=== PATIENT | male | born 1950 | race Caucasian/White ===

== ENCOUNTER 2017-06-21 14:22 | Emergency (ER) | payer MEDICARE ==
[~2017-06-21] VITALS: Ht 175.3 cm; Wt 95.2 kg
[~2017-06-21 14:22] MED LIST: AMLODIPINE BESY10 MG PO; ASPIR 8181 MG PO; CARVEDILOL6.25 MG PO; LISINOPRIL20 MG PO; LOVASTATIN40 MG PO
[2017-06-21] MEDS ORDERED: NITROSTAT0.4 MG SL (16:24)
[2017-06-21] MEDS ORDERED: PRADAXA75 MG PO (16:24)
--- NOTE | 2017-06-21 23:50 | EKG ---
[facility] [address] [facility] [place], [place] [address] Signed Atrial flutter with variable AV block Left axis deviation T wave abnormality, consider inferior ischemia Abnormal ECG No previous ECGs available Confirmed by CHANTAL CARLIN MD ([id number]) on 06/21/2017 11:50:34 PM Electronically Signed By: CHANTAL CARLIN MD 06/21/17 2350 PATIENT NAME: MIKE SAGASTUME SLY Electrocardiogram DATE OF : 46 PHYSICIAN: CHANTAL CARLIN MD REPORT #: [id number] REPORT IS CONFIDENTIAL AND NOT TO BE RELEASED WITHOUT AUTHORIZATION
[2017-08-24] MEDS ORDERED: METOPROLOL TART50 MG PO (15:11)
[2017-08-24] MEDS ORDERED: WARFARIN SODIUM5 MG PO (15:19)
== END 2017-06-21 16:40 | disposition home or self-care (01) ==
LOC: ED 14:22
DX: R07.89 Other chest pain (principal); I48.92 Unspecified atrial flutter; R06.00 Dyspnea, unspecified; Z87.891 Personal history of nicotine dependence; Z79.899 Other long term (current) drug therapy; Z79.82 Long term (current) use of aspirin
CPT/HCPCS: 71045; 80053; 83880; 84443; 84484; 85025; 85379; 93005; 93010; 99284

== ENCOUNTER 2019-04-07 15:42 | Emergency (ER) | payer MEDICARE ==
[~2019-04-07] VITALS: Ht 177.8 cm; Wt 106.1 kg
--- OUTSIDE RECORDS SUMMARY | ~2019-04-07 | XMS | Encounter Summary ---
Demographics + + + | Address | [address] | | | [place] [address] | + + + | Home Phone | | + + + | Preferred Language | Unknown | + + + | Marital Status | | + + + | Holiness Affiliation | Unknown | + + + | Race | Unknown | + + + | Ethnic Group | Unknown | + + + Author + + + | Author | [facility] | | | and Aristides | + + + | Organization | [facility] | | | and [place] | + + + | Address | Unknown | + + + | Phone | Unavailable | + + + Support + + +---------+ + | Name | Relationship | Address | Phone | + + +---------+ + | Dante Garzon | ECON | Unknown | | | "Cousin" | | | | + + +---------+ + Care Team Providers + +------+ + | Care Appellate Law Clerk Name | Role | Phone | + +------+ + | Moses Lopez MD | PCP | | + +------+ + Reason for Visit + + + | Reason | Comments | + + + | Follow-up | b/p issues and Hx of atrial flutter/fib | + + + Encounter Details +--------+---------+ + + + | Date | Type | Department | Care Team | Description | +--------+---------+ + + + | 03/21/ | Office | [facility] | Magdalena Kohler | Atrial | | 2019 | Visit | CARDIOLOGY [facility] | MD [address] | fibrillation/flutter | | | | [address] | [place] | (HCC) (Primary Dx); | | | | [place], [place] | [address] | SVT | | | | [phone] | | (supraventricular | | | | [phone] | | tachycardia) ([facility]); | | | | | | Paroxysmal atrial | | | | | | flutter ([facility]); SOB | | | | | | (shortness of | | | | | | breath) on exertion; | | | | | | Essential | | | | | | hypertension; | | | | | | Lightheadedness | +--------+---------+ + + + Social History + +-------+ +--------+------+ | Tobacco Use | Types | Packs/Day | Years | Date | | | | | Used | | + +-------+ +--------+------+ | Never Smoker | | | | | + +-------+ +--------+------+ + +---+---+---+ | Smokeless Tobacco: | | | | | Never Used | | | | + +---+---+---+ + + +---------+ + | Alcohol Use | Drinks/We | oz/Week | Comments | | | ek | | | + + +---------+ + | Not Currently | | | | + + +---------+ + + + + | Sex Assigned at | Date Recorded | | | | + + + | Not on file | | + + + + + + + | Job Start Date | Occupation | Industry | + + + + | Not on file | Not on file | Not on file | + + + + + + + + | Travel History | Travel Start | Travel End | + + + + + + | No recent travel history available. | + + documented as of this encounter Last Filed Vital Signs + + + + | Vital Sign | Reading | Time Taken | + + + + | Blood Pressure | 108/70 | 03/21/2019 1008 PDT | + + + + | Pulse | 132 | 03/21/20191007 PDT | + + + + | Temperature | - | - | + + + + | Respiratory Rate | 18 | 03/21/20191007 PDT | + + + + | Oxygen Saturation | 97% | 03/21/20191007 PDT | + + + + | Inhaled Oxygen | - | - | | Concentration | | | + + + + | Weight | 105.2 kg (232 lb) | 03/21/20191007 PDT | + + + + | Height | 177.8 cm (5' 10") | 03/21/2019 1008 PDT | + + + + | Body Mass Index | 33.29 | 03/21/2019 1008 PDT | + + + + documented in this encounter Progress Notes Magdalena Kohler MD - 03/21/2019 1015 PDTFormatting of this note might be different fro m the original. [facility] OUTPATIENT VISIT PATIENT NAME: Otto Mock : 1950: AGE: 68 y.o. (home) Date of visit: 03/21/2019 PRIMARY CARE: Moses Lopez MD CHIEF COMPLAINT Chief Complaint Patient presents with Follow-up b/p issues and Hx of atrial flutter/fib Plan ASSESSMENT & PLAN 1. Paroxysmal atrial flutter with rapid ventricular response, status post prior electrical cardioversion, currently with rapid ventricular response 2. Paroxysmal atrial fibrillation 3. Hypertension 4. Obstructive sleep apnea, not using CPAP regularly 5. Exertional shortness of breath 6. Episodes of near syncope Patient is highly symptomatic with recurrence of atrial flutter currently with rapid ventri cular response causing episodes of hypotension shortness of breath and lightheadedness and n ear syncope. Recommended electrical cardioversion, which we will arrange for today, with anesthesia. He has been anticoagulated. Will stop hydrochlorothiazide Change carvedilol to Toprol-XL 100 mg daily Continue lisinopril and amlodipine. If episodes of low blood pressure then we might discon tinue amlodipine. Continue Coumadin anticoagulation Orders Placed This Encounter Procedures ECG 12 lead Case Request - CV/EP LAB: CV EP CARDIOVERSION HISTORY OF PRESENT ILLNESS Otto Mock is 68 y.o. male with a history of hypertension, atrial fibrillation, atri al flutter status post cardioversion, obstructive sleep apnea, who is here today for follow- up on concerns about worsening episodes of lightheadedness and dizziness and episode of near syncope. He also had noticed exertional shortness of breath with minimal activity. He had been having on and off for palpitations with feeling his heart racing. He had blood pressu re measurements from home. He had one severe episode of near syncope at that time his blood pressure was low 78/48. He had one episode of right-sided left-sided sharp chest pain that lasted few seconds but denies any exertional chest pains. Denies orthopnea, paroxysmal noc turnal dyspnea. Did not have a real syncope. He had been taking his Coumadin regularly and no bleeding issues. ECG today showed probable atrial flutter with 2-1 conduction with a ve ntricular rate of 131 bpm. RELEVANT MEDICAL HISTORY Past Medical History: Diagnosis Date Atrial fibrillation (HCC) Hypertension Rheumatic fever CHILDHOOD Past Surgical History: Procedure Laterality Date CARDIOVERSION Social History Socioeconomic History Marital status: Spouse name: Not on file Number of children: Not on file Years of education: Not on file Highest education level: Not on file Social Needs Financial resource strain: Not on file Food insecurity - worry: Not on file Food insecurity - inability: Not on file Transportation needs - medical: Not on file Transportation needs - non-medical: Not on file Occupational History Not on file Tobacco Use Smoking status: Never Smoker Smokeless tobacco: Never Used Substance and Sexual Activity Alcohol use: Not Currently Drug use: Never Comment: Drug use: No Sexual activity: Not on file Other Topics Concern Not on file Social History Narrative Not on file History reviewed. No pertinent family history. REVIEW OF SYSTEMS All other systems are reviewed and negative, except as above in the HPI. Review of Systems Constitution: Positive for malaise/fatigue. Negative for diaphoresis. HENT: Negative for congestion, nosebleeds and sore throat. Eyes: Negative for blurred vision. Cardiovascular: Positive for near-syncope and palpitations. Negative for chest pain, claudi cation, irregular heartbeat, leg swelling, orthopnea, paroxysmal nocturnal dyspnea and synco pe. Respiratory: Positive for shortness of breath. Negative for cough, hemoptysis and snoring. Endocrine: Negative for cold intolerance and heat intolerance. Hematologic/Lymphatic: Negative for bleeding problem. Does not bruise/bleed easily. Skin: Negative for color change and rash. Musculoskeletal: Negative for arthritis, back pain, joint pain and neck pain. Gastrointestinal: Negative for abdominal pain, constipation, diarrhea, nausea and vomiting. Genitourinary: Negative for hematuria. Neurological: Positive for light-headedness. Negative for dizziness, focal weakness and hea daches. Psychiatric/Behavioral: Negative for depression. The patient is not nervous/anxious. Outpatient Medications Prior to Visit Medication Sig Dispense Refill amLODIPine (NORVASC) 10 MG tablet Take 1 tablet by mouth daily. 90 tablet 3 ascorbic acid (VITAMIN C) 1000 MG tablet Take 1,000 mg by mouth daily. carvedilol (COREG) 12.5 mg tablet Take 1 tablet by mouth 2 (two) times daily with meals . 180 tablet 3 hydroCHLOROthiazide 25 mg tablet Take 1 tablet by mouth daily. 90 tablet 3 lisinopril (PRINIVIL, ZESTRIL) 20 mg tablet Take 1 tablet by mouth 2 (two) times daily. 180 tablet 3 lovastatin (MEVACOR) 40 MG tablet Take 40 mg by mouth daily. Multiple Vitamins-Minerals (MULTIVITAMIN ADULTS PO) Take 1 tablet by mouth daily. nitroglycerin (NITROSTAT) 0.[address] 0.4 mg under the tongue every 5 (five) minutes as needed. warfarin (COUMADIN) 5 mg tablet Take 5 mg by mouth daily. No facility-administered medications prior to visit. PHYSICAL EXAM BP 108/70 | Pulse 132 | Resp 18 | Ht 1.778 m (5' 10") | Wt 105.2 kg (232 lb) | SpO2 97 % | BMI 33.29 kg/m Physical Exam Constitutional: He is oriented to person, place, and time. No distress. HENT: Head: Normocephalic and atraumatic. Eyes: Conjunctivae are normal. No scleral icterus. Neck: No JVD present. Cardiovascular: Regular rhythm. Tachycardia present. Exam reveals no gallop and no friction rub. No murmur heard. Pulmonary/Chest: No stridor. No respiratory distress. He has no wheezes. He exhibits no ten derness. Abdominal: Soft. Bowel sounds are normal. There is no tenderness. There is no rebound. Musculoskeletal: He exhibits no edema, tenderness or deformity. Neurological: He is alert and oriented to person, place, and time. No cranial nerve deficit . Skin: Skin is warm and dry. No rash noted. He is not diaphoretic. No pallor. Psychiatric: He has a normal mood and affect. PERTINENT DATA LABORATORY RESULTS: Lab Results Component Value Date WBC 11.13 (H) 07/28/2017 HGB 15.6 07/28/2017 Lab Results Component Value Date INR 2.2 08/27/2017 Lab Results Component Value Date NA 140 07/28/2017 K 4.5 07/28/2017 CL 110 (H) 07/28/2017 CO2 23 07/28/2017 BUN 12 07/28/2017 No results found for: CHOL, TRIG, HDL, LDL, LDLEX, TSH IMAGING RESULTS ECG March 21, 2019, personally reviewed, showed supraventricular tachycardia, possibly atr ial flutter with 2-1 conduction ventriculart rate of 131 bpm, left axis deviation. ECG September 16, 2017, reviewed, showed sinus bradycardia, left axis deviation, nonspecific T-w ave changes. Hotler 08/02/2017 INTERPRETATION 1. The basic rhythm is atrial flutter with rapid ventricular response with variable ventric ular response. 2. Average ventricular rate 105 beats per minute, fastest ventricular rate 133 beats per mi nute. 3. Ventricular rate above 100 beats per minute in about 60% of the time. 4. No significant pauses. 5. No ventricular tachycardia. 6. No other supraventricular tachycardia. 7. No symptoms reported. IMPRESSION Atrial flutter with variable response with uncontrolled ventricular rate, tachycardia burde n 60%. Echo 08/09/2017 Impression 1. Overall left ventricular systolic function is normal with, an EF between 60 - 65 %. 2. The left atrium is mildly enlarged. 3. Mild mitral regurgitation is present. 4. Mild tricuspid regurgitation present. Cath 07/28/2017 IMPRESSION 1. Normal epicardial coronary arteries. 2. Normal left ventricular systolic function with estimated ejection fraction of 65%. 3. Atrial flutter with rapid ventricular response, improved with intravenous verapamil and metoprolol. A 12-lead ECG done at [facility] dated June 21, 2017, reviewed showed atrial fl utter with variable AV block and rapid ventricular response and left axis deviation. Lexiscan nuclear stress test done at [facility] dated July 14, 2017, reporte d as: 1. No ECG changes to suggest Lexiscan induced ischemia 2. No evidence of ischemia or infarction on myocardial perfusion. The ejection fraction is 42%. Mild dyskinesia. The following portions of the patient's history were reviewed and updated as appropriate: Allergies, current medications, family history, past medical history, past social history, past surgical history and problem list. Thank you for allowing me to participate in the care of this patient. Please, do not hesitate to contact me with any further questions. Magdalena Kohler MD 03/21/2019 *Portions of this report have been prepared using [employer] voice recognition software. The re port was reviewed for accuracy, however, sound-alike word errors, additions and/or deletions may occur. Please use the clinical context for clarification. If there is any question abou t this report, please contact me. documented in this e ncounter Plan of Treatment +--------+---------+ + + + | Date | Type | Specialty | Care Team | Description | +--------+---------+ + + + | 07/06/ | Office | Cardiology | Magdalena Kohler | | | 2019 | Visit | | MD [address] | | | | | | [place] | | | | | | [id number] | | | | | | | | +--------+---------+ + + + documented as of this encounter Procedures + +--------+ + + + | Procedure Name | Priori | Date/Time | Associated Diagnosis | Comments | | | ty | | | | + +--------+ + + + | ECG 12 LEAD | Routin | 03/21/2019 | Atrial | Results for this | | | e | 10:15 PDT | fibrillation/flutter | procedure are in the | | | | | ([facility]) | results section. | + +--------+ + + + documented in this encounter Results ECG 12 lead (03/21/2019 10:15 PDT) + + + + + + | Component | Value | Ref Range | Performed | Pathologist | | | | | At | Signature | + + + + + + | VENTRICULAR | 131 | BPM | [facility] | | | RATE EKG | | | | | + + + + + + | ATRIAL RATE | 131 | BPM | [facility] | | + + + + + + | QRS | 98 | ms | [facility] | | | DURATION | | | | | + + + + + + | Q-T | 358 | ms | [facility] | | | INTERVAL | | | | | + + + + + + | Q-T | 528 | ms | [facility] | | | INTERVAL | | | | | | (CORRECTED) | | | | | + + + + + + | QRS AXIS | -65 | degrees | [facility] | | + + + + + + | T AXIS | -31 | degrees | [facility] | | + + + + + + | INTERPRETAT | Please refer to | | [facility] | | | ION TEXT | Providers office visit | | | | | | note for Providers | | | | | | Interpretation.Confirmed | | | | | | by [facility] [place] Read Only, | | | | | | [facility] [place] ([id number]), | | | | | | medical editor Eris Daniel | | | | | | ([id number]) on 03/21/2019 | | | | | | 10:19:02 AM | | | | + + + + + + + + | Specimen | + + | | + + + + + | Narrative | Performed At | + + + | | | + + + + +---------+ + + | Performing | Address | City/State/Zipcode | Phone Number | | Organization | | | | + +---------+ + + | [facility] | | | | + +---------+ + + documented in this encounter Visit Diagnoses + + | Diagnosis | + + | Atrial fibrillation/flutter (HCC) - Primary | + + | SVT (supraventricular tachycardia) ([facility]) Other specified cardiac dysrhythmias | + + | Paroxysmal atrial flutter (HCC) Atrial flutter | + + | SOB (shortness of breath) on exertion Shortness of breath | + + | Essential hypertension Unspecified essential hypertension | + + | Lightheadedness Dizziness and giddiness | + + documented in this encounter
--- OUTSIDE RECORDS SUMMARY | ~2019-04-07 | XMS | Encounter Summary ---
Demographics + + + | Address | [address] | | | [place] [address] | + + + | Home Phone | | + + + | Preferred Language | Unknown | + + + | Marital Status | | + + + | Lutheran Affiliation | Unknown | + + + | Race | Unknown | + + + | Ethnic Group | Unknown | + + + Author + + + | Author | [facility] | | | and Aristides | + + + | Organization | [facility] | | | and [...] Team Providers + +------+ + | Care Punch Box Tender Name | Role | Phone | + +------+ + | Moses Lopez MD | PCP | | + +------+ + Reason for Visit Auth/Cert +--------+--------+ + + + + | Status | Reason | Specialty | Diagnoses / | Referred By | Referred To | | | | | Procedures | Contact | Contact | +--------+--------+ + + + + | | | | Diagnoses | | Hashim, | | | | | Atrial | | Abdelazim O, | | | | | fibrillation | | MD [address] | | | | | /flutter | | [address] | | | | | (HCC) SVT | | [place], [place] | | | | | (supraventri | | [address] Phone: | | | | | sabas | | [phone] | | | | | tachycardia) | | Fax: | | | | | ([facility]) | | [phone] | | | | | Paroxysmal | | | | | | | atrial | | | | | | | flutter | | | | | | | ([facility]) | | | | | | | Procedures | | | | | | | DE | | | | | | | CARDIOVERSIO | | | | | | | N ELECTIVE | | | | | | | ARRHYTHMIA | | | | | | | EXTERNAL | | | +--------+--------+ + + + + Encounter Details +--------+ + + + + | Date | Type | Department | Care Team | Description | +--------+ + + + + | 03/21/ | Hospital | [facility] | Magdalena Kohler | Atrial | | 2018 | Encounter | CENTER CV INTRA OP | OMD [address] | fibrillation/flutter | | | | [address] | [place] | ([facility]); SVT | | | | [place] | [address] | (supraventricular | | | | [phone] | | tachycardia) ([facility]); | | | | [phone] | | Paroxysmal atrial | | | | | | flutter ([facility]); | | | | | | Atrial | | | | | | fibrillation/flutter | | | | | | ([facility]) | +--------+ + + + + Social History + +-------+ [...] + + + | Blood Pressure | 129/80 | 03/21/20191444 PDT | + + + + | Pulse | 75 | 03/21/20191444 PDT | + + + + | Temperature | 36.4 C (97.6 F) | 03/21/20191426 PDT | + + + + | Respiratory Rate | 12 | 03/21/20191444 PDT | + + + + | Oxygen Saturation | 97% | 03/21/20191444 PDT | + + + + | Inhaled Oxygen | - | - | | Concentration | | | + + + + | Weight | 105.7 kg (233 lb 0.4 | 03/21/20191332 PDT | | | oz) | | + + + + | Height | 177.8 cm (5' 10") | 03/21/20191332 PDT | + + + + | Body Mass Index | 33.44 | 03/21/20191332 PDT | + + + + documented in this encounter Discharge Instructions Instructions Nitza Jacobsen RN - 03/21/2019POST PROCEDURE INSTRUCTIONS FOR JESS (TRANSESOPH AGEAL ECHOCARDIOGRAM) OR CARDIOVERSION Activity/Safety: Because of the effects of sedation or anesthesia, we advise you to refrain from the followi ng activities for at least 12 to 16 hours: -Do NOT drive a car or operate machinery. Your reflexes and coordination are altered. Have standby assistance on stairways. -Do not return to work. -Do not consume alcohol. -Do not operate appliances at home (stove, iron, lawnmower). -Postpone signing any important papers or making any important decisions. -A responsible person must stay with the patient for 12 hours post procedure. Comfort: -You may develop a lump and/or redness at the site where your medication was given. Apply a warm, moist washcloth to the area. If a lump and/or redness co ntinues, call your doctor. -If you had a JESS and develop a sore throat, gargle with warm salt water (1/2 teaspoon salt in 8 ounces of water), or use over the counter throat lozenges (like Lawler's or Chloraseptic) -If you had a cardioversion, your chest or back may get red and/or develop a burning sensation similar to a sunburn. Apply aloe vera lotion or topical spray (like solarcaine) to cool and protect the area. Take Tylenol (acetaminophen) as directed for pain. Call your doctor, or go to nearest Emergency Department for any of the following symptoms: -Unrelieved pain, unusual abdominal or chest pain, or difficulty swallowing -Vomiting blood -Irregular heart beat. If you have any questions, you may call you doctor, or speak with the Diagnostic Imaging nu rse at . documented in this encounter Medications at Time of Discharge + + + +---------+ + + | Medication | Sig | Dispensed | Refills | Start | End Date | | | | | | Date | | + + + +---------+ + + | amLODIPine | Take 1 tablet by | 90 | 3 | 09/30/19 | | | (NORVASC) 10 MG | mouth daily. | tablet | | 19 | | | tablet | | | | | | + + + +---------+ + + | ascorbic acid | Take 1,000 mg by | | 0 | 07/23/19 | | | (VITAMIN C) 1000 MG | mouth daily. | | | 18 | | | tablet | | | | | | + + + +---------+ + + | lisinopril | Take 1 tablet by | 180 | 3 | 09/30/19 | | | (PRINIVIL, ZESTRIL) | mouth 2 (two) times | tablet | | 19 | | | 20 mg tablet | daily. | | | | | + + + +---------+ + + | lovastatin | Take 40 mg by mouth | | 0 | 05/28/20 | | | (MEVACOR) 40 MG | daily. | | | 17 | | | tablet | | | | | | + + + +---------+ + + | metoprolol | Take 1 tablet by | 30 | 11 | 03/21/20 | | | succinate | mouth Daily. | tablet | | 19 | | | (TOPROL-XL) 100 mg | | | | | | | ER tablet | | | | | | + + + +---------+ + + | Multiple | Take 1 tablet by | | 0 | 07/23/19 | | | Vitamins-Minerals | mouth daily. | | | 18 | | | (MULTIVITAMIN ADULTS | | | | | | | PO) | | | | | | + + + +---------+ + + | nitroglycerin | Place 0.4 mg under | | 0 | 06/21/19 | | | (NITROSTAT) 0.4 mg | the tongue every 5 | | | 18 | | | SL tablet | (five) minutes as | | | | | | | needed. | | | | | + + + +---------+ + + | warfarin | Take 5 mg by mouth | | 0 | 08/05/19 | | | (COUMADIN) 5 mg | daily. | | | 18 | | | tablet | | | | | | + + + +---------+ + + documented as of this encounter Progress Notes Nitza Jacobsen RN - 03/21/2019 6343 PDTDischarge instructions, including signs and symptom s of surgical site infection, discussed with patient and family. Patient and family state u nderstanding and have no further questions. No prescriptions given. Patient c/o no pain. V ital signs stable. Discharged per order. documented in this encoun ter Plan of Treatment +--------+---------+ + + + | Date | Type | Specialty | Care Team | Description | +--------+---------+ + + + | 07/06/ | Office | Cardiology | Magdalena Kohler | | | 2019 | Visit | | MD Crow [address] | | | | | | [place] | | | | | | [address] | | | | | | | | +--------+---------+ + + + documented as of this encounter Procedures + +--------+ + + + | Procedure Name | Priori | Date/Time | Associated Diagnosis | Comments | | | ty | | | | + +--------+ + + + | CV EP CARDIOVERSION | Routin | 03/21/2019 | Atrial | Results for this | | | e | 14:24 PDT | fibrillation/flutter | procedure are in the | | | | | ([facility]) SVT | results section. | | | | | (supraventricular | | | | | | tachycardia) ([facility]) | | | | | | Paroxysmal atrial | | | | | | flutter ([facility]) | | + +--------+ + + + | ECG 12 LEAD | STAT | 03/21/2019 | | Results for this | | | | 14:16 PDT | | procedure are in the | | | | | | results section. | + +--------+ + + + | PROTIME INR | STAT | 03/21/2019 | | Results for this | | | | 13:30 PDT | | procedure are in the | | | | | | results section. | + +--------+ + + + | CBC NO DIFFERENTIAL | STAT | 03/21/2019 | | Results for this | | | | 13:30 PDT | | procedure are in the | | | | | | results section. | + +--------+ + + + | BASIC METABOLIC | STAT | 03/21/2019 | | Results for this | | PANEL | | 13:30 PDT | | procedure are in the | | | | | | results section. | + +--------+ + + + documented in this encounter Results CV EP PROCEDURE (03/21/2019 14:24 PDT) + + | Specimen | + + | | + + + + --+ | Narrative | Performed A t | + + --+ | Summary | | | Atrial flutter with rapid ventricular response Successful electrical | | | cardioversion of atrial flutter to sinus rhythm using a single 120 J | | | shock Recommendations Continue Coumadin anticoagulation Carvedilol | | | switched to metoprolol Procedures Performed Cardioversion (71176) | | | Clinical IndicationsThis is a 68 y.o. year old male with a history of | | | paroxysmal atrial fibrillation and paroxysmal atrial flutter status | | | post prior electrical cardioversion of atrial flutter, who has been on | | | persistent atrial flutter with rapid ventricular response, highly | | | symptomatic with exertional shortness of breath and easy | | | fatigability. He has been on anticoagulation with | | | Coumadin. Electrical cardioversion was recommended. | | | | | |Clinical Indications | | |This is a 68 y.o. year old male with a history of paroxysmal atrial | | |fibrillation and paroxysmal atrial flutter status post prior electrical | | |cardioversion of atrial flutter, who has been on persistent atrial flutter | | |with rapid ventricular response, highly symptomatic with exertional | | |shortness of breath and easy fatigability. He has been on anticoagulation | | |with Coumadin. Electrical cardioversion was recommended. | | + + --+ ECG 12 lead (03/21/2019 14:16 PDT) + + + + + + | Component | Value | Ref Range | Performed | Pathologist | | | | | At | Signature | + + + + + + | VENTRICULAR | 77 | BPM | [facility] | | | RATE EKG | | | | | + + + + + + | ATRIAL RATE | 77 | BPM | [facility] | | + + + + + + | P-R | 198 | ms | [facility] | | | INTERVAL | | | | | + + + + + + | QRS | 104 | ms | [facility] | | | DURATION | | | | | + + + + + + | Q-T | 438 | ms | [facility] | | | INTERVAL | | | | | + + + + + + | Q-T | 495 | ms | [facility] | | | INTERVAL | | | | | | (CORRECTED) | | | | | + + + + + + | P WAVE AXIS | 51 | degrees | [facility] | | + + + + + + | QRS AXIS | -51 | degrees | [facility] | | + + + + + + | T AXIS | 0 | degrees | [facility] | | + + + + + + | INTERPRETAT | Normal sinus rhythmLeft | | [facility] | | | ION TEXT | anterior fascicular | | | | | | blockProlonged | | | | | | QTNonspecific ST and/or | | | | | | T wave abnormalities | | | | | | Confirmed by CHRISTOPHER ROBINS | | | | | | ([id number]) on 03/21/2019 | | | | | | 4:54:45 PM | | | | + + + [...] | | | + +---------+ + + Protime INR (03/21/2019 13:30 PDT) + + + + + + | Component | Value | Ref Range | Performed | Pathologist | | | | | At | Signature | + + + + + + | INR | 2.0Comment: REFERENCE | | [facility] | | | | RANGE:0.9 - | | LABORATORY | | | | 1.2 NON-ANTICOAGULATE | | | | | | D2.0 - 3.0 ALL OTHER | | | | | | THERAPEUTIC | | | | | | INDICATIONS2.5 - 3.5 | | | | | | MECHANICAL HEART VALVES, | | | | | | RECURRENT OR SYSTEMIC | | | | | | EMBOLISMTesting | | | | | | performed at [facility] | | | | | | [facility] [facility];[place], [place] | | | | | | [address] | | | | + + + + + + + + | Specimen | + + | Blood | + + + + + + + | Performing | Address | City/State/Zipcode | Phone Number | | Organization | | | | + + + + + | [facility] | [address] | [place] [address] | [phone] | + + + + + CBC no Differential (03/21/2019 13:30 PDT) + + + + + + | Component | Value | Ref Range | Performed | Pathologist | | | | | At | Signature | + + + + + + | WBC | 9.47 | 3.80 - 11.00 | [facility] | | | | | K/uL | LABORATORY | | + + + + + + | RBC | 5.41 | 4.20 - 5.70 | [facility] | | | | | M/uL | LABORATORY | | + + + + + + | Hemoglobin | 15.3 | 13.2 - 17.0 | [facility] | | | | | g/dL | LABORATORY | | + + + + + + | Hematocrit | 46.8 | 39.0 - 50.0 % | [facility] | | | | | | LABORATORY | | + + + + + + | MCV | 86.5 | 80.0 - 100.0 fl | [facility] | | | | | | LABORATORY | | + + + + + + | MCH | 28.2 | 27.0 - 34.0 pg | [facility] | | | | | | LABORATORY | | + + + + + + | MCHC | 32.6 | 32.0 - 35.5 | [facility] | | | | | g/dL | LABORATORY | | + + + + + + | RDW-SD | 45.5 | 37 - 53 fl | [facility] | | | | | | LABORATORY | | + + + + + + | Platelet | 261 | 150 - 400 K/uL | [facility] | | | Count | | | LABORATORY | | + + + + + + | MPV | 8.9Comment: Testing | fl | [facility] | | | | performed at [facility];[address] | | LABORATORY | | | | [address];[place], [place] | | | | | | [address] | | | | + + + + + + + + | Specimen | + + | Blood | + + + + + + + | Performing | Address | City/State/Zipcode | Phone Number | | Organization | | | | + + + + + | [facility] | [address] | [place] [address] | [phone] | + + + + + Basic Metabolic Panel (03/21/2019 13:30 PDT) + + + + + + | Component | Value | Ref Range | Performed | Pathologist | | | | | At | Signature | + + + + + + | Na | 142 | 135 - 145 | [facility] | | | | | mmol/L | LABORATORY | | + + + + + + | K | 3.8 | 3.5 - 4.9 | [facility] | | | | | mmol/L | LABORATORY | | + + + + + + | Cl | 108 | 99 - 109 mmol/L | [facility] | | | | | | LABORATORY | | + + + + + + | CO2 | 23 | 23 - 32 mmol/L | [facility] | | | | | | LABORATORY | | + + + + + + | Anion Gap | 15 | 5 - 20 mmol/L | [facility] | | | | | | LABORATORY | | + + + + + + | Glucose | 100 (H) | 65 - 99 mg/dL | [facility] | | | | | | LABORATORY | | + + + + + + | BUN | 16 | 8 - 25 mg/dL | [facility] | | | | | | LABORATORY | | + + + + + + | Creatinine | 1.31 (H) | 0.70 - 1.30 | [facility] | | | | | mg/dL | LABORATORY | | + + + + + + | BUN/Creatin | 12 | | [facility] | | | ine Ratio | | | LABORATORY | | + + + + + + | Calcium | 9.4 | 8.5 - 10.5 | [facility] | | | | | mg/dL | LABORATORY | | + + + + + + | Estimated | 54 (L)Comment: GFR <60: | >60 | [facility] | | | GFR | CHRONIC KIDNEY DISEASE, | mL/min/1.73m2 | LABORATORY | | | | IF FOUND OVER A 3 MONTH | | | | | | PERIOD.GFR <15: KIDNEY | | | | | | FAILURE.FOR | | | | | | AMERICANS, MULTIPLY THE | | | | | | CALCULATED GFR BY | | | | | | 1.210.This eGFR is | | | | | | calculated using the | | | | | | MDRD IDMS traceable | | | | | | equation.Testing | | | | | | performed at [facility];[address] | | | | | | [facility];[place], [place] | | | | | | [address] | | | | + + + + + + + + | Specimen | + + | Blood | + + + + + + + | Performing | Address | City/State/Zipcode | Phone Number | | Organization | | | | + + + + + | [facility] | [address] | [place] [address] | [phone] | + + + + + documented in this encounter Visit Diagnoses + + | Diagnosis | + + | Atrial fibrillation/flutter (HCC) | + + | SVT (supraventricular tachycardia) ([facility]) Other specified cardiac dysrhythmias | + + | Paroxysmal atrial flutter (HCC) Atrial flutter | + + documented in this encounter Admitting Diagnoses + + | Diagnosis | + + | SVT (supraventricular tachycardia) (HCC) Other specified cardiac dysrhythmias | + + | Paroxysmal atrial flutter (HCC) Atrial flutter | + + | Atrial fibrillation/flutter ([facility]) | + + documented in this encounter Administered Medications + +---------+ +------+------+------+ | Medication Order | MAR | Action | Dose | Rate | Site | | | Action | Date | | | | + +---------+ +------+------+------+ | sodium chloride 0.9% (NS) | New Bag | 03/21/20 | | | | | infusion at 100 mL/hr, | | 19 13:59 | | | | | Intravenous, CONTINUOUS, Starting | | PDT | | | | | 03/21/19 at 1330, | | | | | | | Recovery/Phase I | | | | | | + +---------+ +------+------+------+ +---------+ +---+-------+---+ | New Bag | 03/21/20 | | 100 | | | | 19 13:45 | | mL/hr | | | | PDT | | | | +---------+ +---+-------+---+ +---+---+ | | | +---+---+ documented in this encounter
--- OUTSIDE RECORDS SUMMARY | ~2019-04-07 | XMS | Clinical Summary ---
Demographics + + + | Address | [address] | | | [place] [address] | + + + | Home Phone | | + + + | Preferred Language | Unknown | + + + | Marital Status | | + + + | Caodaism Affiliation | Unknown | + + + | Race | Unknown | + + + | Ethnic Group | Unknown | + + + Author + + + | Author | [facility] (Historical as of | | | 01-28-19) | + + + | Organization | [facility] (Historical as of | | | 01-28-19) | + + + | Address | [...] Team Providers + +------+ + | Care Perforator Name | Role | Phone | + +------+ + | Moses Lopez MD | PP | | + +------+ + Allergies No Known Allergies Current Medications + + +--------+---------+------+------+-------+ | Prescription | Sig. | Disp. | Refills | Star | End | Statu | | | | | | t | Date | s | | | | | | Date | | | + + +--------+---------+------+------+-------+ | lovastatin | Take 40 mg by mouth | | | 12/1 | | Activ | | (MEVACOR) 40 MG | daily. | | | 5/20 | | e | | tablet | | | | 17 | | | + + +--------+---------+------+------+-------+ | nitroGLYCERIN | Place 0.4 mg under | | | 01/0 | | Activ | | (NITROSTAT) 0.4 MG | the tongue every 5 | | | 8/20 | | e | | SL tablet | (five) minutes as | | | 18 | | | | | needed. | | | | | | + + +--------+---------+------+------+-------+ | ascorbic acid | Take 1,000 mg by | | | | | Activ | | (VITAMIN C) 1000 MG | mouth daily. | | | | | e | | tablet | | | | | | | + + +--------+---------+------+------+-------+ | Multiple | Take 1 tablet by | | | | | Activ | | Vitamins-Minerals | mouth daily. | | | | | e | | (MULTIVITAMIN ADULTS | | | | | | | | PO) | | | | | | | + + +--------+---------+------+------+-------+ | warfarin | Take 5 mg by mouth | | | 02/2 | | Activ | | (COUMADIN) 5 MG | daily. | | | 2/20 | | e | | tablet | | | | 18 | | | + + +--------+---------+------+------+-------+ | carvedilol (COREG) | Take 1 tablet by | 180 | 3 | 04/1 | 04/1 | Activ | | 12.5 MG tablet | mouth 2 (two) times | tablet | | 8/20 | 7/20 | e | | | daily with meals. | | | 19 | 20 | | + + +--------+---------+------+------+-------+ | lisinopril | Take 1 tablet by | 180 | 3 | 04/1 | | Activ | | (ZESTRIL) 20 MG | mouth 2 (two) times | tablet | | 8/20 | | e | | tablet | daily. | | | 19 | | | + + +--------+---------+------+------+-------+ | amLODIPine | Take 1 tablet by | 90 | 3 | 04/1 | | Activ | | (NORVASC) 10 MG | mouth daily. | tablet | | 8/20 | | e | | tablet | | | | 19 | | | + + +--------+---------+------+------+-------+ | | Take 1 tablet by | 90 | 3 | 09/12 | 09/12 | Activ | | hydrochlorothiazide | mouth daily. | tablet | | 01/31 | 12/31 | e | | (HYDRODIURIL) 25 MG | | | | 19 | 20 | | | tablet | | | | | | | + + +--------+---------+------+------+-------+ Active Problems + + + | Problem | Noted Date | + + + | Hyperlipemia | 09/16/2017 | + + + | Paroxysmal atrial flutter (HCC) | 08/26/2017 | + + + | Paroxysmal atrial fibrillation (HCC) | 07/23/2017 | + + + | Hypertension | 07/23/2017 | + + + | Rheumatic fever | 07/23/2017 | + + + + + | Overview: CHILDHOOD | + + Resolved Problems + + + + | Problem | Noted | Resolved | | | Date | Date | + + + + | Exercise intolerance | 08/27/19 | | | | 18 | 8 | + + + + | SOB (shortness of breath) on exertion | 07/23/19 | | | | 18 | 8 | + + + + | Precordial pain | 07/23/19 | | | | 18 | 8 | + + + + | Dilated cardiomyopathy (HCC) | 07/23/19 | | | | 18 | 8 | + + + + Social History + [...] | | + + +---------+ + | No | | | | + + +---------+ + + + + | Sex Assigned at | Date Recorded | | | | + + + | Not on file | | + + + Last Filed Vital Signs + + + + | Vital Sign | Reading | Time Taken | + + + + | Blood Pressure | 150/80 | 09/29/2018 1:36 PM PDT | + + + + | Pulse | 53 | 09/29/2018 1:36 PM PDT | + + + + | Temperature | 36.6 C (97.9 F) | 08/27/2017 2:04 PM PDT | + + + + | Respiratory Rate | 18 | 09/29/2018 1:36 PM PDT | + + + + | Oxygen Saturation | 98% | 09/29/2018 1:36 PM PDT | + + + + | Inhaled Oxygen | - | - | | Concentration | | | + + + + | Weight | 105.7 kg (233 lb) | 09/29/2018 1:36 PM PDT | + + + + | Height | 177.8 cm (5' 10") | 03/29/2018 11:01 AM PDT | + + + + | Body Mass Index | 33.43 | 09/29/2018 1:36 PM PDT | + + + + Plan of Treatment + + + + + | Health Maintenance | Due Date | Last Done | Comments | + + + + + | Vaccine: | | | | | Dtap/Tdap/Td (1 - | 8 | | | | Tdap) | | | | + + + + + | Colon Cancer | | | | | Screening | 9 | | | | (Colonoscopy) | | | | + + + + + | Vaccine: Zoster (1 | | | | | of 2) | 9 | | | + + + + + | Vaccine: | | | | | Pneumococcal 65+ | 4 | | | | Low/Medium Risk (1 | | | | | of 2 - PCV13) | | | | + + + + + | Vaccine: Influenza | | | | | (#1) | 9 | | | + + + + + Results Not on filefrom Last 3 Months Insurance + +--------+ +------+-------+ + | Payer | Benefi | Subscriber | Type | Phone | Address | | | t Plan | ID | | | | | | / | | | | | | | Group | | | | | + +--------+ +------+-------+ + | MEDICARE | MEDICA | [id number] | | | [address] | | | RE | | | | [place] [address] | | | IP-OP | | | | | + +--------+ +------+-------+ + | [employer] | UNITED | [id number] | | | | | | | | | | | | | HEALTH | | | | | | | CARE - | | | | | | | AARP | | | | | + +--------+ +------+-------+ + + +--------+ +--------+ + + | Guarantor Name | Accoun | Relation to | Date | Phone | Billing Address | | | t Type | Patient | of | | | | | | | | | | + +--------+ +--------+ + + | OTTO SAGASTUME | Person | Self [birth year] | Home: | [address] | | | al/Fam | | 1951 | [phone] | [place] [address] | | | chas | | | [phone] | | + +--------+ +--------+ + +
--- OUTSIDE RECORDS SUMMARY | ~2019-04-07 | XMS | Encounter Summary ---
Demographics + + + | Address | [address] | | | [place] [address] | + + + | Home Phone | | + + + | Preferred Language | Unknown | + + + | Marital Status | | + + + | Jainism Affiliation | Unknown | + + + | Race | Unknown | + + + | Ethnic Group | Unknown | + + + Author + + + | Author | [facility] | | | and Aristides | + + + | Organization | [facility] | | | and [...] Team Providers + +------+ + | Care Purchase Price Analyst Name | Role | Phone | + [...] + + | 03/21/ | Office | [facility] | Magdalena Kohler | Atrial | | 2019 | Visit | CARDIOLOGY [facility] | MD Crow [address] | fibrillation/flutter | | | | [address] | [place] | (HCC) (Primary Dx); | | | | [place] | [address] | SVT | | | | [address] | | (supraventricular | | | | [phone] | | tachycardia) ([facility]); | | | | | | Paroxysmal atrial | | | | | | flutter ([facility]); SOB | | | | | | [...] might be different fro m the original. [facility] OUTPATIENT VISIT PATIENT NAME: Otto Mock [...] and metoprolol. A 12-lead ECG done at [facility] dated June 21, 2017, reviewed showed atrial fl utter with variable AV block and rapid ventricular response and left axis deviation. Lexiscan nuclear stress test done at [facility] dated July 14, 2017, reporte d as: [...] of this report have been prepared using [employer] voice recognition software. The re port was [...] in the | | | | | ([facility]) | results section. | + +--------+ + [...] | | | | | by [employer] Read Only, | | | | | | [employer] ([id number]), | | | | | | editor publications Eris Daniel | | | | | | ([phone]) on 03/21/2019 | | | | | [...] | + + | SVT (supraventricular tachycardia) ([facility]) Other specified cardiac dysrhythmias | + + | Paroxysmal atrial flutter (HCC) Atrial flutter | + + | SOB (shortness of breath) on exertion Shortness of breath | + + | Essential hypertension Unspecified essential hypertension | + + | Lightheadedness Dizziness and giddiness | + + documented in this encounter
--- OUTSIDE RECORDS SUMMARY | ~2019-04-07 | XMS | Encounter Summary ---
Demographics + + + | Address | [address] | | | [place] [address] | + + + | Home Phone | | + + + | Preferred Language | Unknown | + + + | Marital Status | | + + + | Judaism Affiliation | Unknown | + + + | Race | Unknown | + + + | Ethnic Group | Unknown | + + + Author + + + | Author | [facility] | | | and Aristides | + + + | Organization | [facility] | | | [...] Team Providers + +------+ + | Care Rhinologist Name | Role | Phone | + +------+ + | Moses oLpez MD | PCP | | + +------+ [...] | | | (HCC) SVT | | [place], [place] | | | | | (supraventri | | [address] Phone: | | | | | sabas | | [phone] | | | | | tachycardia) | | Fax: | | | | | (HCC) | | [phone] | | | | | Paroxysmal | | | | | | | atrial | | | | | | | flutter | | | | | | | (HCC) | | | | | | | Procedures | | | | | | | NM | | | | | | | [...] + + + + | 03/21/ | Anesthesia | [facility] | Angelia Donato, | | | 2018 | Event | CENTER CV INTRA OP | [address] | | | | | [address] | [place] [address] | | | | | [place], [place] | [phone] | | | | | [address] | | | | | | [phone] | | | +--------+ + + + + Anesthesia Record + + + + + | Procedure Name | Responsible | Anesthesia Start | Anesthesia Stop Time | | | Anesthesiologist | Time | | + + + + + | CV EP CARDIOVERSION | Sean Crooks, | 03/21/19 1402 | 03/21/19 1413 | | (N/A ) | MD | | | + + + + + +----+---+ + + | Da | T | Event | Comment | | te | i | | | | | m | | | | | e | | | +----+---+ + + | 10 | 1 | An Start | Reassessment prior to anesthesia induction/procedure. | | /0 | 4 | | | | 8/ | 0 | | | | 20 | 2 | | | | 19 | | | | +----+---+ + + | | 1 | | | | | 4 | | | | | 0 | | | | | 3 | | | +----+---+ + + | | 1 | AN | Per surgeon request | | | 4 | Antibiotic | | | | 0 | declined | | | | 4 | | | +----+---+ + + | | 1 | Anesthesia | | | | 4 | Ready | | | | 0 | | | | | 4 | | | +----+---+ + + | | 1 | Quick Note | timeout | | | 4 | | | | | 0 | | | | | 4 | | | +----+---+ + + | | 1 | First | | | | 4 | Inc/Proc St | | | | 0 | | | | | 5 | | | +----+---+ + + | | 1 | Quick Note | shock | | | 4 | | | | | 0 | | | | | 6 | | | +----+---+ + + | | 1 | Quick Note | Patient doeing well. Vitals stable on Ra. RR 24. | | | 4 | | | | | 1 | | | | | 0 | | | +----+---+ + + | | 1 | An Stop | Patient handed off to recovery nurse. | | | 1 | | | | | 3 | | | +----+---+ + + +------+ | Meds | +------+ + +--------+ | Name | Total | + +--------+ | propofol | 60 mg | + +--------+ | sodium chloride 0.9% (NS) | 200 mL | | infusion | | + +--------+ + + | Name | + + | Secondary O2 Flow Rate | + + + + | No blood administrations on file. | + + +--------+ + + + | Type | Details | Placement | Removal | +--------+ + + + | Periph | 03/21/19; 1340; Left; Forearm; 20 | 03/21/19 1340 by | 03/21/19 1511 by | | chester | gauge; inserted by VIMAL WARD; | Reggie Valerio, | Nitza Jacobsen RN | | IV | 03/21/19; 1511 | RN | | +--------+ + + + documented in this encounter Social History + +-------+ +--------+------+ | Tobacco [...] + + documented as of this encounter Plan of Treatment +--------+---------+ + + + | Date | Type | Specialty | Care Team | Description | +--------+---------+ + + + | 07/06/ | Office | Cardiology | Lisa Kohlerdharmesh | | | 2019 | Visit | | MD Crow [address] | | | | | | [place] | | | | | | [address] | | | | | | | | +--------+---------+ + + + documented as of this encounter Visit Diagnoses Not on filedocumented in this encounter Administered Medications + +--------+ +-------+------+------+ | Medication Order | MAR | Action | Dose | Rate | Site | | | Action | Date | | | | + +--------+ +-------+------+------+ | propofol (DIPRIVAN) injection | Given | 03/21/20 | 60 mg | | | | Intravenous, PRN, Starting Tue | | 19 14:05 | | | | | 03/21/19 at 1405, Anesthesia | | PDT | | | | | Intra-op | | | | | | + +--------+ +-------+------+------+ +---+---+ | | | +---+---+ + +---------+ +---+---+---+ | sodium chloride 0.9% (NS) | New Bag | 03/21/20 | | | | | infusion at 100 mL/hr, | | 19 13:59 | | | | | Intravenous, CONTINUOUS, Starting | | PDT | | | | | 03/21/19 at 1330, | | | | | | | Recovery/Phase I | | | | | | + +---------+ +---+---+---+ +---------+ +---+-------+---+ | New Bag | 03/21/20 | | 100 | | | | 19 13:45 | | mL/hr | | | | PDT | | | | +---------+ +---+-------+---+ +---+---+ | | | +---+---+ documented in this encounter
--- OUTSIDE RECORDS SUMMARY | ~2019-04-07 | XMS | Clinical Summary ---
Demographics + + + | Address | [address] | | | [place] [address] | + + + | Home Phone | | + + + | Preferred Language | Unknown | + + + | Marital Status | | + + + | Baptist Affiliation | Unknown | + + + | Race | Unknown | + + + | Ethnic Group | Unknown | + + + Author + + + | Author | [facility] | | | and Aristides | + + + | Organization | [facility] | | | and [...] Team Providers + +------+ + | Care Title Specialist Name | Role | Phone | + +------+ + | Moses Lopez MD | PCP | | + +------+ + Allergies + + + + + + | Active Allergy | Reactions | Severity | Noted | Comments | | | | | Date | | + + + + + + | Uncoded | Hives | | 03/21/20 | Pt states that he | | Nonscreenable | | | 19 | is allergic to an | | Allergen | | | | antibiotic but | | | | | | unsure with the | | | | | | name. Pt states that | | | | | | he will bring the | | | | | | medication name at | | | | | | his next visit. | + + + + + + Medications + + + +---------+------+------+-------+ | Medication | Sig | Dispensed | Refills | Star | End | Statu | | | | | | t | Date | s | | | | | | Date | | | + + + +---------+------+------+-------+ | Multiple | Take 1 tablet by | | 0 | 02/0 | | Activ | | Vitamins-Minerals | mouth daily. | | | 03/03 | | e | | (MULTIVITAMIN ADULTS | | | | 18 | | | | PO) | | | | | | | + + + +---------+------+------+-------+ | lovastatin | Take 40 mg by mouth | | 0 | 12/1 | | Activ | | (MEVACOR) 40 MG | daily. | | | /20 | | e | | tablet | | | | 17 | | | + + + +---------+------+------+-------+ | nitroglycerin | Place 0.4 mg under | | 0 | 01/0 | | Activ | | (NITROSTAT) 0.4 mg | the tongue every 5 | | | 8/20 | | e | | SL tablet | (five) minutes as | | | 18 | | | | | needed. | | | | | | + + + +---------+------+------+-------+ | ascorbic acid | Take 1,000 mg by | | 0 | 02/0 | | Activ | | (VITAMIN C) 1000 MG | mouth daily. | | | 9/20 | | e | | tablet | | | | 18 | | | + + + +---------+------+------+-------+ | warfarin | Take 5 mg by mouth | | 0 | 02/2 | | Activ | | (COUMADIN) 5 mg | daily. | | | 2/20 | | e | | tablet | | | | 18 | | | + + + +---------+------+------+-------+ | lisinopril | Take 1 tablet by | 180 | 3 | 04/1 | | Activ | | (PRINIVIL, ZESTRIL) | mouth 2 (two) times | tablet | | 8/20 | | e | | 20 mg tablet | daily. | | | 19 | | | + + + +---------+------+------+-------+ | amLODIPine | Take 1 tablet by | 90 | 3 | 04/1 | | Activ | | (NORVASC) 10 MG | mouth daily. | tablet | | 8/20 | | e | | tablet | | | | 19 | | | + + + +---------+------+------+-------+ | metoprolol | Take 1 tablet by | 30 | 11 | 10/0 | | Activ | | succinate | mouth Daily. | tablet | | 8/20 | | e | | (TOPROL-XL) 100 mg | | | | 19 | | | | ER tablet | | | | | | | + + + +---------+------+------+-------+ | carvedilol (COREG) | Take 1 tablet by | 180 | 3 | 04/1 | 10/0 | Disco | | 12.5 mg tablet | mouth 2 (two) times | tablet | | 01/31 | 01/31 | ntinu | | | daily with meals. | | | 19 | 19 | ed | + + + +---------+------+------+-------+ | | Take 1 tablet by | 90 | 3 | 09/12 | | Disco | | hydroCHLOROthiazide | mouth daily. | tablet | | 01/31 | 01/31 | ntinu | | 25 mg tablet | | | | 19 | 19 | ed | + + + +---------+------+------+-------+ Active Problems + + + | Problem | Noted Date | + + + | SVT (supraventricular tachycardia) | 03/21/2019 | + + + | SOB (shortness of breath) on exertion | 03/21/2019 | + + + | Lightheadedness | 03/21/2019 | + + + | Atrial fibrillation/flutter | 03/21/2019 | + + + + + | Overview: Added automatically from request for surgery | | [id number] | + + + + + | Hyperlipemia | 09/16/2017 | + + + | Paroxysmal atrial flutter | 08/26/2017 | + + + | Paroxysmal atrial fibrillation | 07/23/2017 | + + + | Hypertension | 07/23/2017 | + + + | Rheumatic fever | 07/23/2017 | + + + + + | Overview: CHILDHOOD | + + Encounters +--------+ + + + + | Date | Type | Specialty | Care Team | Description | +--------+ + + + + | 03/21/ | Anesthesia | Radiology | Angelia Donato, | | | 2019 | Event | | MD | | +--------+ + + + + | 10/08/ | Surgery | Radiology | Magdalena Kohler | CV EP CARDIOVERSION | | 2019 | | | OMD | | +--------+ + + + + | 03/21/ | Hospital | Radiology | Magdalena Kohler | Atrial | | 2019 | Encounter | | MD Crow | fibrillation/flutter | | | | | | ([facility]); SVT | | | | | | (supraventricular | | | | | | tachycardia) ([facility]); | | | | | | Paroxysmal atrial | | | | | | flutter ([facility]); | | | | | | Atrial | | | | | | fibrillation/flutter | | | | | | ([facility]) | +--------+ + + + + | 03/21/ | Office | Cardiology | Magdalena Kohler | Atrial | | 2019 | Visit | | MD Crow | fibrillation/flutter | | | | | | ([facility]) (Primary Dx); | | | | | | SVT | | | | | | (supraventricular | | | | | | tachycardia) ([facility]); | | | | | | Paroxysmal atrial | | | | | | flutter ([facility]); SOB | | | | | | (shortness of | | | | | | breath) on exertion; | | | | | | Essential | | | | | | hypertension; | | | | | | Lightheadedness | +--------+ + + + + from Last 3 Months Immunizations + + + + | Name | Dates Previously Given | Next Due | + + + + | INFLUENZA 63 Y OR >, | 02/28/2019, 03/02/2018, 03/29/2017 | | | TRIVALENT HIGH-DOSE | | | + + + + | PNEUMOCOCCAL | 11/08/2008 | | | POLYSACCHARIDE | | | | 23-VALENT (PPSV23) | | | + + + + Social History [...] recent travel history available. | + + Last Filed Vital Signs + [...] 03/21/20191332 PDT | + + + + Plan of Treatment +--------+---------+ + + + | Date | Type | Specialty | Care Team | Description | +--------+---------+ + + + | 07/06/ | Office | Cardiology | Magdalena Kohler | | | 2019 | Visit | | MD [facility] | | | | | | [place] | | | | | | [address] | | | | | | | | +--------+---------+ + + + + + + + + | Health Maintenance | Due Date | Last Done | Comments | + + + + + | Hepatitis C | | | | | Screening | 9 | | | + + + + + | Vaccine: | | | | | Dtap/Tdap/Td (1 - | 8 | | | | Tdap) | | | | + + + + + | Colorectal Cancer | | | | | Screening | 9 | | | | (Colonoscopy) | | | | + + + + + | Vaccine: Zoster (1 | | | | | of 2) | 9 | | | + + + + + | Vaccine: | | 11/08/2008 | | | Pneumococcal 65+ | 4 | | | | Low/Medium Risk (1 | | | | | of 2 - PCV13) | | | | + + + + + | Adult Annual | | | | | Wellness Visit | 9 | | | + + + + + | Vaccine: Influenza | Completed | 02/28/2019, 03/02/2018, | | | | | 03/29/2017 | | + + + + + Procedures + +--------+ + + + | [...] in the | | | | | ([facility]) SVT | results section. | | | | | (supraventricular | | | | | | tachycardia) ([facility]) | | | | | | Paroxysmal atrial | | | | | | flutter ([facility]) | | + +--------+ + + + [...] in the | | | | | ([facility]) | results section. | + +--------+ + + + from Last 3 Months Results CV EP PROCEDURE (03/21/2019 14:24 PDT) [...] | switched to metoprolol Procedures Performed Cardioversion ([id number]) | | | Clinical IndicationsThis is a [...] + --+ ECG 12 lead (03/21/2019 14:16 PDT)Only the most recent of 2 results within the time period is included. + + + + + + | [...] ROBINS | | | | | | (832) on 03/21/2019 | | | | | [...] | | | + +---------+ + + Keenan BARNEY (03/21/2019 13:30 PDT) + + + + [...] | | | | | performed at [facility];[address] | | | | | | [address];[place], [place] | | | | | | [address] | | | | + + + + + + + + | Specimen | + + | Blood | + + + + + + + | Performing | Address | City/State/Zipcode | Phone Number | | Organization | | | | + + + + + | [facility] | [address] | [place] [address] | [phone] | + + + + + CBC [...] MPV | 8.9Comment: Testing | fl | [facility] | | | | performed at [facility] | | LABORATORY | | | | [address];[place], [place] | | | | | | [address] | | | | + + + + + + + + | Specimen | + + | Blood | + + + + + + + | Performing | Address | City/State/Zipcode | Phone Number | | Organization | | | | + + + + + | [facility] | [address] | [place] [address] | [phone] | + + + + + Basic [...] | 9.4 | 8.5 - 10.5 | [facility] | | | | | mg/dL | LABORATORY | | + + + + + + | Estimated | 54 (L)Comment: GFR <60: | >60 | [facility] | | | GFR | CHRONIC KIDNEY [...] | | | | | | MDRD IDNM traceable | | | | | | equation.Testing | | | | | | performed at [facility] | | | | | | [facility];[place], [place] | | | | | | [address] | | | | + + + + + + + + | Specimen | + + | Blood | + + + + + + + | Performing | Address | City/State/Zipcode | Phone Number | | Organization | | | | + + + + + | [facility] | [address] | [place] [address] | [phone] | + + + + + from Last 3 Months Insurance + +--------+ +--------+ +---------+--------+ | Payer | Benefi | Subscriber | Effect | Phone | Address | Type | | | t Plan | ID | kalani | | | | | | / | | Dates | | | | | | Group | | | | | | + +--------+ +--------+ +---------+--------+ | MEDICARE | MEDICA | [id number] | 08/13/19 | [phone] | | Medica | | | RE | | 14-Pre | 5 | | re | | | PART A | | sent | | | | | | AND B | | | | | | + +--------+ +--------+ +---------+--------+ | AARP | AARP | [id number] | 06/14/19 | [phone] | | Indemn | | | MDCR | | 19-Pre | 0 | | ity | | | SUPPL | | sent | | | | + +--------+ +--------+ +---------+--------+ + +--------+ +--------+ + + | Guarantor Name | Accoun | Relation to | Date | Phone | Billing Address | | | t Type | Patient | of | | | | | | | | | | + +--------+ +--------+ + + | Otto Mock | Person | Self [birth year] | [address] | | | rosalind/Papi | | 1951 | [phone] | [place] [address] | | | chas | | | 6 (Home) | | + +--------+ +--------+ + + Advance Directives Patient has advance care planning documents on file. For more information, please contact:[facility] [address]
--- OUTSIDE RECORDS SUMMARY | ~2019-04-07 | XMS | Encounter Summary ---
Demographics + + + | Address | [address] | | | [place] [address] | + + + | Home Phone | | + + + | Preferred Language | Unknown | + + + | Marital Status | | + + + | Jehovah'S Witness Affiliation | Unknown | + + + | Race | Unknown | + + + | Ethnic Group | Unknown | + + + Author + + + | Author | [facility] | | | and Aristides | + + + | Organization | [facility] | | | and [...] Team Providers + +------+ + | Care Tobacco Weigher Name | Role | Phone | + [...] | | | (HCC) SVT | | [place], [place] | | | | | (supraventri | | [address] Phone: | | | | | sabas | | [phone] | | | | | tachycardia) | | Fax: | | | | | (HCC) | | [phone] | | | | | Paroxysmal | | | | | | | atrial | | | | | | | flutter | | | | | | | (HCC) | | | | | | | Procedures | | | | | | | [place] | | | | | | | CARDIOVERSIO | | | | | | | N ELECTIVE | | | | | | | ARRHYTHMIA | | | | | | | EXTERNAL | | | +--------+--------+ + + + + Encounter Details +--------+---------+ + + + | Date | Type | Department | Care Team | Description | +--------+---------+ + + + | 03/21/ | Surgery | [facility] | Magdalena Kohler | CV EP CARDIOVERSION | | 2018 | | CENTER CV INTRA OP | MD Crow [address] | | | | | [address] [facility] | [place] | | | | | [place] | [address] | | | | | [address] | | | | | | [phone] | | | +--------+---------+ + + + Social History [...] + | Oxygen Saturation | 97% | 03/21/2019 1445 PDT | + + + + | Inhaled Oxygen | - | - | | Concentration | | | + + + + | Weight | 105.7 kg (233 lb 0.4 | 03/21/2019 1333 PDT | | | oz) | | + + + + | Height | 177.8 cm (5' 10") | 03/21/2019 1333 PDT | + + + + | Body Mass Index | 33.44 | 03/21/2019 1333 PDT | + + + + documented [...] Progress Notes Nitza Jacobsen RN - 03/21/2019 1453 PDTDischarge instructions, including signs and symptom s [...] [place] | | | | | | [address] | | | | | | | [...] in the | | | | | ([facility]) SVT | results section. | | | | | (supraventricular | | | | | | tachycardia) ([facility]) | | | | | | Paroxysmal atrial | | | | | | flutter ([facility]) | | + +--------+ + [...] | switched to metoprolol Procedures Performed Cardioversion ([id number]) | | | Clinical IndicationsThis is a [...] ROBINS | | | | | | (898) on 03/21/2019 | | | | | [...] | | | | | performed at [facility];[address] | | | | | | [address];[place], [place] | | | | | | [address] | | | | + + + + + + + + | Specimen | + + | Blood | + + + + + + + | Performing | Address | City/State/Zipcode | Phone Number | | Organization | | | | + + + + + | [facility] | [address] | [place] [address] | [phone] | + + + + + CBC [...] [facility] | | | | performed at [facility];[address] | | LABORATORY | | | | [address];[place] | | | | | | [address] | | | | + + + + + + + + | Specimen | + + | Blood | + + + + + + + | Performing | Address | City/State/Zipcode | Phone Number | | Organization | | | | + + + + + | [facility] | [address] | [place] [address] | [phone] | + + + + + Basic [...] | | | | | performed at [facility];[address] | | | | | | [facility];[place], [place] | | | | | | [address] | | | | + + + + + + + + | Specimen | + + | Blood | + + + + + + + | Performing | Address | City/State/Zipcode | Phone Number | | Organization | | | | + + + + + | [facility] | [address] | [place] [address] | [phone] | + + + + + documented in this encounter Visit Diagnoses + + | Diagnosis | + + | Atrial fibrillation/flutter ([facility]) | + + | SVT (supraventricular tachycardia) ([facility]) Other specified cardiac dysrhythmias | + + | Paroxysmal atrial flutter ([facility]) Atrial flutter | + + documented in this encounter Admitting Diagnoses + + | Diagnosis | + + | SVT (supraventricular tachycardia) ([facility]) Other specified cardiac dysrhythmias | + + | Paroxysmal atrial flutter (HCC) Atrial flutter | + + | Atrial fibrillation/flutter (HCC) | + + documented in this encounter [...]
--- OUTSIDE RECORDS SUMMARY | ~2019-04-07 | XMS | Clinical Summary ---
Demographics + + + | Address | [address] | | | [place] [address] | + + + | Home Phone | | + + + | Preferred Language | Unknown | + + + | Marital Status | | + + + | Mandaen Affiliation | Unknown | + + + | Race | Unknown | + + + | Ethnic Group | Unknown | + + + Author + + + | Author | [facility] (Historical as of | | | 01-28-19) | + + + | Organization | [facility] (Historical as of | | | 01-28-19) [...] Team Providers + +------+ + | Care Registered Nurse Ambulatory Name | Role | Phone | + [...] +------+-------+ + | MEDICARE | MEDICA | [id number] | | | [address] | | | RE | | | | [place] [address] | | | IP-OP | | | | | + +--------+ +------+-------+ + | [facility] | UNITED | [id number] | | | | | | | [...] | Self | [birth year] | Home: | [address] | | | al/Fam | | 1951 | [phone] [place] [address] | | | chas | | | [phone] | | + +--------+ +--------+ + +
--- OUTSIDE RECORDS SUMMARY | ~2019-04-07 | XMS | Clinical Summary ---
Demographics + + + | Address | [address] | | | [place] [address] | + + + | Home Phone | | + + + | Preferred Language | Unknown | + + + | Marital Status | | + + + | Moravian Affiliation | Unknown | + + + [...] [facility] | | | and [place] | + + + | Address | [...] Team Providers + +------+ + | Care Director Orange Name | Role | Phone | + [...] automatically from request for surgery | | [id number] | + + + + + | [...] | 2019 | Encounter | | MD rCow | fibrillation/flutter | | | | | | ([facility]); SVT | | | | | | (supraventricular | | | | | | tachycardia) ([facility]); | | | | | | Paroxysmal atrial | | | | | | flutter ([facility]); | | | | | | Atrial | | | | | | fibrillation/flutter | | | | | | ([facility]) | +--------+ + + + + | 03/21/ | Office | Cardiology | Magdalena Kohler | Atrial | | 2019 | Visit | | MD Crow | fibrillation/flutter | | | | | | ([facility]) (Primary Dx); | | | | | | SVT | | | | | | (supraventricular | | | | | | tachycardia) ([facility]); | | | | | | Paroxysmal atrial | | | | | | flutter ([facility]); SOB | | | | | | [...] [place] | | | | | | [address] | | | | | | | [...] in the | | | | | ([facility]) SVT | results section. | | | | | (supraventricular | | | | | | tachycardia) ([facility]) | | | | | | Paroxysmal atrial | | | | | | flutter ([facility]) | | + +--------+ + + + [...] in the | | | | | ([facility]) | results section. | + +--------+ + [...] | switched to metoprolol Procedures Performed Cardioversion ([id number]) | | | Clinical IndicationsThis is a [...] ROBINS | | | | | | (746) on 03/21/2019 | | | | | [...] | | performed at [facility];[address] | | | | | | [address];[place], [place] | | | | | | [address] | | | | + + + + + + + + | Specimen | + + | Blood | + + + + + + + | Performing | Address | City/State/Zipcode | Phone Number | | Organization | | | | + + + + + | [facility] | [address] | [place] [address] | [phone] | + + + + + CBC [...] [facility] | | | | performed at [facility] | | LABORATORY | | | | [address];[place], [place] | | | | | | [address] | | | | + + + + + + + + | Specimen | + + | Blood | + + + + + + + | Performing | Address | City/State/Zipcode | Phone Number | | Organization | | | | + + + + + | [facility] | [address] | [place] [address] | [phone] | + + + + + Basic [...] | 9.4 | 8.5 - 10.5 | [facility] | | | | | mg/dL | LABORATORY | | + + + + + + | Estimated | 54 (L)Comment: GFR <60: | >60 | [facility] | | | GFR | CHRONIC KIDNEY [...] | | | | | | MDRD IDAZ traceable | | | | | | equation.Testing | | | | | | performed at [facility] | | | | | | [facility];[place], [place] | | | | | | [address] | | | | + + + + + + + + | Specimen | + + | Blood | + + + + + + + | Performing | Address | City/State/Zipcode | Phone Number | | Organization | | | | + + + + + | [facility] | [address] | [place] [address] | [phone] | + + + + + from [...] +--------+ +---------+--------+ | MEDICARE | MEDICA | [id number] | 08/13/19 | [phone] | | Medica | | | RE | | 14-Pre | 5 | | re | | | PART A | | sent | | | | | | AND B | | | | | | + +--------+ +--------+ +---------+--------+ | AARP | AARP | [id number] | 06/14/19 | [phone] | | Indemn [...] Person | Self | [birth year] | [address] [address] | | | rosalind/Papi | | 1951 | [phone] | [place] [address] | | | chas | | | 6 (Home) | | + +--------+ +--------+ + + Advance Directives Patient has advance care planning documents on file. For more information, please contact:[facility] and [facility] [address]
--- OUTSIDE RECORDS SUMMARY | ~2019-04-07 | XMS | Encounter Summary ---
Demographics + + + | Address | [address] | | | [place] [address] | + + + | Home Phone | | + + + | Preferred Language | Unknown | + + + | Marital Status | | + + + | Mandaen Affiliation | Unknown | + + + | Race | Unknown | + + + | Ethnic Group | Unknown | + + + Author + + + | Author | [facility] | | | and Aristides | + + + | Organization | [facility] | | [...] Team Providers + +------+ + | Care Boiler Control Technician Name | Role | Phone | + [...] | | | (HCC) SVT | | [place], [place] | | | | | (supraventri | | [address] Phone: | | | | | sabas | | [phone] | | | | | tachycardia) | | Fax: | | | | | (HCC) | | [phone] | | | | | Paroxysmal | | | | | | | atrial | | | | | | | flutter | | | | | | | (HCC) | | | | | | | Procedures | | | | | | | [place] | | | | | | | [...] + + | 03/21/ | Anesthesia | [facility] | Angelia Donato, | | | 2018 | Event | CENTER CV INTRA OP | [address] | | | | | [address] | [place] [address] | | | | | [place], [place] | [phone] | | | | | [address] | | | | | | [phone] | | | +--------+ + + + [...] [place] | | | | | | [address] | | | | | | | [...]
--- OUTSIDE RECORDS SUMMARY | ~2019-04-07 | XMS | Encounter Summary ---
Demographics + + + | Address | [address] | | | [place] [address] | + + + | Home Phone | | + + + | Preferred Language | Unknown | + + + | Marital Status | | + + + | Amish Affiliation | Unknown | + + + | Race | Unknown | + + + | Ethnic Group | Unknown | + + + Author + + + | Author | [facility] | | | and Aristides | + + + | Organization | [facility] | | [...] Team Providers + +------+ + | Care Tool And Die Inspector Name | Role | Phone | + [...] | | | (HCC) SVT | | [place], [place] | | | | | (supraventri | | [address] Phone: | | | | | sabas | | [phone] | | | | | tachycardia) | | Fax: | | | | | ([facility]) | | [phone] | | | | | Paroxysmal | | | | | | | atrial | | | | | | | flutter | | | | | | | ([facility]) | | | | | | | Procedures | | | | | | | [place] | | | | | | | [...] + + | 03/21/ | Hospital | [facility] | Magdalena Kohler | Atrial | | 2018 | Encounter | CENTER CV INTRA OP | OMD [address] | fibrillation/flutter | | | | [address] | [place] | ([facility]); SVT | | | | [place] | [address] | (supraventricular | | | | [id number] | | tachycardia) ([facility]); | | | | [phone] | | Paroxysmal atrial | | | | | | flutter ([facility]); | | | | | | Atrial | | | | | | fibrillation/flutter | | | | | | ([facility]) | +--------+ + + + + [...] Progress Notes Nitza Jacobsen RN - 03/21/2019 3213 PDTDischarge instructions, including signs and symptom s [...] [place] | | | | | | [address] | | | | | | | [...] in the | | | | | ([facility]) SVT | results section. | | | | | (supraventricular | | | | | | tachycardia) ([facility]) | | | | | | Paroxysmal atrial | | | | | | flutter ([facility]) | | + +--------+ + + [...] | switched to metoprolol Procedures Performed Cardioversion (42485) | | | Clinical IndicationsThis is a [...] ROBINS | | | | | | (946) on 03/21/2019 | | | | | [...] | | | | | performed at [facility] | | | | | | [address] [facility];[place], [place] | | | | | | [address] | | | | + + + + + + + + | Specimen | + + | Blood | + + + + + + + | Performing | Address | City/State/Zipcode | Phone Number | | Organization | | | | + + + + + | [facility] | [address] | [place] [address] | [phone] | + + + + + CBC [...] EDWIN | | | | performed at [facility];[address] | | LABORATORY | | | | [address];[place], [place] | | | | | | [address] | | | | + + + + + + + + | Specimen | + + | Blood | + + + + + + + | Performing | Address | City/State/Zipcode | Phone Number | | Organization | | | | + + + + + | [facility] | [address] | [place] [address] | [phone] | + + + + + Basic [...] | | | | | performed at [facility];[address] | | | | | | [facility];[place], [place] | | | | | | [address] | | | | + + + + + + + + | Specimen | + + | Blood | + + + + + + + | Performing | Address | City/State/Zipcode | Phone Number | | Organization | | | | + + + + + | [facility] | [address] | [place] [address] | [phone] | + + + + + documented in this encounter Visit Diagnoses + + | Diagnosis | + + | Atrial fibrillation/flutter (HCC) | + + | SVT (supraventricular tachycardia) ([facility]) Other specified cardiac dysrhythmias | + + | Paroxysmal atrial flutter (HCC) Atrial flutter | + + documented in this encounter Admitting Diagnoses + + | Diagnosis | + + | SVT (supraventricular tachycardia) (HCC) Other specified cardiac dysrhythmias | + + | Paroxysmal atrial flutter (HCC) Atrial flutter | + + | Atrial fibrillation/flutter ([facility]) | + + documented in this [...]
--- OUTSIDE RECORDS SUMMARY | ~2019-04-07 | XMS | Encounter Summary ---
Demographics + + + | Address | [address] | | | [place] [address] | + + + | Home Phone | | + + + | Preferred Language | Unknown | + + + | Marital Status | | + + + | Restorationism Affiliation | Unknown | + + + | Race | Unknown | + + + | Ethnic Group | Unknown | + + + Author + + + | Author | [facility] | | | and Aristides | + + + | Organization | [facility] | | | and [...] Team Providers + +------+ + | Care Doctor Of Radiology Name | Role | Phone | + [...] | | | (HCC) SVT | | [place], [place] | | | | | (supraventri | | [address] Phone: | | | | | sabas | | [phone] | | | | | tachycardia) | | Fax: | | | | | (HCC) | | [phone] | | | | | Paroxysmal | | | | | | | atrial | | | | | | | flutter | | | | | | | (HCC) | | | | | | | Procedures | | | | | | | [place] | | | | | | | [...] + + | 03/21/ | Surgery | [facility] | Magdalena Kohler | CV EP CARDIOVERSION | | 2018 | | CENTER CV INTRA OP | MD [address] | | | | | [address] [facility] | [place] | | | | | [place] | [address] | | | | | [address] | | | | | | [phone] | | | +--------+---------+ + + + [...] [place] | | | | | | [address] | | | | | | | [...] in the | | | | | ([facility]) SVT | results section. | | | | | (supraventricular | | | | | | tachycardia) ([facility]) | | | | | | Paroxysmal atrial | | | | | | flutter ([facility]) | | + +--------+ + [...] | switched to metoprolol Procedures Performed Cardioversion ([id number]) | | | Clinical IndicationsThis is a [...] ROBINS | | | | | | (476) on 03/21/2019 | | | | | [...] | | | | | performed at [facility];[address] | | | | | | [address];[place], [place] | | | | | | [address] | | | | + + + + + + + + | Specimen | + + | Blood | + + + + + + + | Performing | Address | City/State/Zipcode | Phone Number | | Organization | | | | + + + + + | [facility] | [address] | [place] [address] | [phone] | + + + + + CBC [...] [facility] | | | | performed at [facility];[address] | | LABORATORY | | | | [address];[place] | | | | | | [address] | | | | + + + + + + + + | Specimen | + + | Blood | + + + + + + + | Performing | Address | City/State/Zipcode | Phone Number | | Organization | | | | + + + + + | [facility] | [address] | [place] [address] | [phone] | + + + + + Basic [...] | | | | | performed at [facility];[address] | | | | | | [facility];[place], [place] | | | | | | [address] | | | | + + + + + + + + | Specimen | + + | Blood | + + + + + + + | Performing | Address | City/State/Zipcode | Phone Number | | Organization | | | | + + + + + | [facility] | [address] | [place] [address] | [phone] | + + + + + documented in this encounter Visit Diagnoses + + | Diagnosis | + + | Atrial fibrillation/flutter ([facility]) | + + | SVT (supraventricular tachycardia) ([facility]) Other specified cardiac dysrhythmias | + + | Paroxysmal atrial flutter ([facility]) Atrial flutter | + + documented in this encounter Admitting Diagnoses + + | Diagnosis | + + | SVT (supraventricular tachycardia) ([facility]) Other specified cardiac dysrhythmias | [...]
[~2019-04-07 15:42] MED LIST changes: +CARVEDILOL12.5 MG PO; +METOPROLOL TART50 MG PO; +NITROSTAT0.4 MG SL; +PRADAXA75 MG PO; +WARFARIN SODIUM5 MG PO
[2019-04-07] MEDS ORDERED: METOPROLOL SUC100 MG PO (15:49)
[2019-04-07] MEDS ORDERED: METOPROLOL SUCC50 MG PO (18:48)
[2019-04-07] MEDS ORDERED: NORVASC5 MG PO (18:48)
--- NOTE | 2019-04-08 08:07 | EKG ---
[facility] [address] [facility] [place] [address] Signed Sinus tachycardia Left anterior fascicular block Nonspecific T wave abnormality Abnormal ECG When compared with ECG of 21-JUN-2017 14:29, Sinus rhythm has replaced Atrial flutter QRS duration has increased Non-specific change in ST segment in Anterior leads Confirmed by CHANA MONTERO MD ([id number]) on 04/08/2019 8:07:20 AM Electronically Signed By: CHANA MONTERO MD 04/08/19806 PATIENT NAME: MIKE SAGASTUME Electrocardiogram DATE OF : 46 PHYSICIAN: CHANA MONTERO MD REPORT #: [id number] REPORT IS CONFIDENTIAL AND NOT TO BE RELEASED WITHOUT AUTHORIZATION
--- NOTE | 2019-04-08 08:07 | EKG ---
[facility] [address] [facility] [place] [address] Signed Normal sinus rhythm Left axis deviation Cannot rule out Anterior infarct , age undetermined Abnormal ECG When compared with ECG of 07-APR-2019 15:52, (Unconfirmed) Vent. rate has decreased BY 78 BPM QRS duration has decreased Non-specific change in ST segment in Inferior leads ST now depressed in Anterior leads Nonspecific T wave abnormality no longer evident in Lateral leads Confirmed by CHANA MONTERO MD ([id number]) on 04/08/2019 8:07:28 AM Electronically Signed By: CHANA MONTERO MD 04/08/19 0807 PATIENT NAME: MIKE SAGASTUME Electrocardiogram DATE OF : 46 PHYSICIAN: CHANA MONTERO MD REPORT #: [id number] REPORT IS CONFIDENTIAL AND NOT TO BE RELEASED WITHOUT AUTHORIZATION
== END 2019-04-07 19:20 | disposition home or self-care (01) ==
LOC: ED 15:42
DX: I48.92 Unspecified atrial flutter (principal); Z88.1 Allergy status to other antibiotic agents; Z79.01 Long term (current) use of anticoagulants; Z79.899 Other long term (current) drug therapy
CPT/HCPCS: 71045; 80053; 83735; 84484; 85025; 85610; 93005; 93010; 96361; 99152; 99285-25; J0153; J7030

== ENCOUNTER 2020-05-21 22:26 | Emergency (ER) | payer MEDICARE ==
[~2020-05-21] VITALS: Ht 177.8 cm; Wt 106.1 kg
[~2020-05-21 22:26] MED LIST changes: +ADVAIR HFA 115-12 GM INH; +AMIODARONE HCL200 MG PO; +AMIODARONE HCL400 MG PO; +C-10001000 MG PO; +HYDRALAZINE HCL50 MG PO; +ISOSORBIDE MON120 MG PO; +METOPROLOL SUC100 MG PO; +METOPROLOL SUC200 MG PO; +METOPROLOL SUCC50 MG PO; +NORVASC5 MG PO; +SPIRONOLACTONE25 MG PO; +VENTOLIN HFA18 GM INH
== END 2020-05-22 00:11 | disposition home or self-care (01) ==
LOC: ED 22:26
DX: R04.0 Epistaxis (principal); I48.91 Unspecified atrial fibrillation; Z88.1 Allergy status to other antibiotic agents; Z79.899 Other long term (current) drug therapy; Z79.01 Long term (current) use of anticoagulants
CPT/HCPCS: 30901; 80053; 85025; 85610; 99283-25